=== PATIENT | male | born 1945 | race Caucasian/White ===

== ENCOUNTER 2022-08-16 19:38 | Emergency (ER) | payer MEDICARE ==
[~2022-08-16] VITALS: Ht 167.6 cm; Wt 73.0 kg
[2022-08-16] MEDS ORDERED: Aspir 8181 MG PO (19:56)
[2022-08-16] MEDS ORDERED: HYDCHL25 (19:56)
[2022-08-16] MEDS ORDERED: METO25ER PO (19:56)
[2022-08-16] MEDS ORDERED: ATOR40TA PO (19:57)
[2022-08-16 20:00] LABS: Calcium, Ionized (POC) 1.02 mmol/L (1.10-1.46); Chloride (POC) 101 mmol/L (98-108); Glucose (ISTAT POC) 125 mg/dL (70-99); Potassium (POC) 3.7 mmol/L (3.5-5.5); Sodium (POC) 137 mmol/L (135-148); Total CO2 (POC) 23 mmol/L (21-32)
[2022-08-16 20:09] VITALS: BP 125/64
[2022-08-16 20:16] LABS: BASOPHILS ABSOLUTE AUTO 0.11 K/mm3 (0.00-0.23); BASOPHILS PERCENT AUTO 1 % (0-2); EOSINOPHILS ABSOLUTE AUTO 0.09 K/mm3 (0.00-0.68); EOSINOPHILS PERCENT AUTO 1 % (0-6); Hematocrit 42.1 % (37.0-53.0); Hemoglobin 14.7 g/dL (13.5-17.5); IMMATURE GRAN ABSOLUTE AUTO 0.09 K/mm3 (0.00-0.10); IMMATURE GRAN PERCENT AUTO 1 % (0-1); LYMPHOCYTES ABSOLUTE AUTO 2.66 K/mm3 (0.84-5.20); LYMPHOCYTES PERCENT AUTO 14 % (21-46); MONOCYTES ABSOLUTE AUTO 0.55 K/mm3 (0.16-1.47); MONOCYTES PERCENT AUTO 3 % (4-13); Mean Corpuscular HGB Conc 34.9 g/dL (31.5-36.5); Mean Corpuscular Volume 95 fL (80-100); NEUTROPHILS ABSOLUTE AUTO 15.45 K/mm3 (1.96-9.15); NEUTROPHILS PERCENT AUTO 82 % (41-73); NRBC ABSOLUTE 0.02 K/mm3 (0.00-0.02); NRBC Auto 0.1 /100 WBC (0.0-0.2); RDW Coefficient Variation 13.1 % (11.7-14.2); RDW Standard Deviation 45.6 fL (35.1-46.3); Red Blood Cell Count 4.45 M/mm3 (4.30-5.90); White Blood Cell Count 18.95 K/mm3 (4.00-11.30)
[2022-08-16 20:17] LABS: Mean Platelet Volume 12.9 fL (9.1-12.4); Platelet Count 159 K/mm3 (150-400)
[2022-08-16 20:21] LABS: Alanine Aminotransfer (ALT/SGP 27 U/L (12-78); Albumin, Blood 3.6 g/dL (3.4-5.0); Albumin/Globulin Ratio 0.9 (0.8-1.8); Alk Phos 98 U/L (50-136); Anion Gap 9 mmol/L (6-16); Aspartate Aminotrans (AST/SGOT 33 U/L (12-37); Bilirubin, Total 0.9 mg/dL (0.1-1.0); Blood Urea Nitrogen 22 mg/dL (8-24); Bun/Creatinine Ratio 21.8 (12.0-20.0); CHOL/HDL RATIO 2.8; CO2, Blood 24 mmol/L (21-32); Calcium, Blood 9.4 mg/dL (8.5-10.1); Chloride, Blood 105 mmol/L (98-108); Cholesterol 102 mg/dL (50-200); Creatinine, Blood 1.01 mg/dL (0.60-1.20); Globulin, Blood 4.1 g/dL (2.2-4.0); Glomerular Filtration Rate 77 (60-); Glucose, Blood 125 mg/dL (70-99); HDL Cholesterol 37 mg/dL (>39); LDL/HDL RATIO 1.3; Low Density Lipoprotein Chol 48 mg/dL (0-110); Magnesium, Blood 1.7 mg/dL (1.6-2.4); Potassium, Blood 3.8 mmol/L (3.5-5.5); Sodium, Blood 138 mmol/L (136-145); Total Protein, Blood 7.7 g/dL (6.4-8.2); Triglycerides 87 mg/dL (30-160); Very Low Density Lipoprot Chol 17 mg/dL (6-32)
== END 2022-08-16 20:18 | disposition short-term general hospital (02) ==
LOC: ER 19:38
PROVIDERS: Emergency Medicine
DX: I21.3 ST elevation (STEMI) myocardial infarction of unspecified site (principal); Z95.5 Presence of coronary angioplasty implant and graft
CPT/HCPCS: 71045; 80047; 80053; 80061; 83735; 84484; 85014; 85025; 86850; 86900; 86901; 92977; 93005; 93010; 99291-25; J3101